=== PATIENT | female | born 1980 | race Caucasian/White ===

== ENCOUNTER → 2021-05-20 | Outpatient (CLI) | payer OTHER ==
[~2021-05-20] MED LIST: APAP500; AUGMENTIN 875875 MG PO; CARISOPRODOL350 MG PO; COLACE100 MG; IBUPROFEN 600600 M1; PRENATAL; TUCKS MEDICATE1 EAC1; TUMS; ZOLOFT 50 MG TA50 M1; [UNRECOGNIZED DRUG - OTHER]; [UNRECOGNIZED DRUG - OTHER] PO
== END ==
LOC: BC 07:43
PROVIDERS: ATTEND Obstetrics & Gynecology
DX: Z12.31 Encounter for screening mammogram for malignant neoplasm of breast (principal); N63.20 Unspecified lump in the left breast, unspecified quadrant; N64.89 Other specified disorders of breast

== ENCOUNTER → 2021-05-25 | Outpatient (CLI) | payer OTHER | LOC: ULTRA 13:52 | PROVIDERS: ATTEND Obstetrics & Gynecology | DX: N60.02 Solitary cyst of left breast (principal); N63.0 Unspecified lump in unspecified breast ==